=== PATIENT | female | born 1950 | race Caucasian/White ===

== ENCOUNTER 2016-04-06 07:32 | Day surgery (SDC) | payer OTHER ==
[~2016-04-06 07:32] MED LIST: BUPIVACAINE HCL 0.75% INJ/PF (7.5 MG/1 ML) 10 ML SDV OS PRN; KETOROLAC TROMETHAMINE 0.45% 4 DROP/0.4 ML DROPERETTE OS PRN; LIDOCAINE 4% INJ/PF (40 MG/ML) 5 ML AMPUL OS PRN
[2016-04-06] MEDS: TROPICAMIDE 1% OPH SOLN 3 ML OS PRN ×3 (08:29→08:40)
[2016-04-06] MEDS: CYCLOPENTOLATE 0.2%/PHENYLEPHRINE 1% OPH SOLN 2 ML OS PRN ×3 (08:30→08:41)
[2016-04-06] MEDS: BESIFLOXACIN HCL 0.6% OPH SUSP 5 ML BOTTLE OS PRN ×4 (08:31→09:21)
[2016-04-06] MEDS: TETRACAINE HCL 0.5% OPH SOLN 0.6 ML DROPERETTE OS PRN ×2 (08:33→08:43)
[2016-04-06] MEDS ORDERED: EPINEPHRINE INJ/PF 1 MG/1 ML AMPULE ONE (08:34)
[2016-04-06] MEDS ORDERED: CHONDR SU A NA/HYALUR INTRAOC KIT (SURGICARE) ONE (08:35)
[2016-04-06] MEDS ORDERED: MIDAZOLAM 2 MG/2 ML INJ ONE (08:45)
[2016-04-06] MEDS ORDERED: LIDOCAINE 1% INJ-PF (10 MG/ML) 30 ML SDV ONE (09:09)
--- NOTE | 2016-04-06 09:29 | [facility] OPERATIVE REPORT E ---
[facility] Operative Report NAME: ROSALINO VILLATORO AGE: 65Y DATE OF SURGERY: 04/06/2016 ROOM: PREOPERATIVE DIAGNOSIS: CATARACT, LEFT EYE. POSTOPERATIVE DIAGNOSIS: CATARACT, LEFT EYE. PROCEDURE; Phacoemulsification with posterior chamber intraocular lens, left eye. SURGEON: ZACKARY ACEVEDO MD ANESTHESIA: Topical with MAC plus intraocular lidocaine. INDICATIONS FOR SURGERY: Difficulty driving at night due to glare. Best-corrected visual acuity 20/50. PROCEDURE: The patient was brought to the operating room and placed on the operative table. Following tetracaine drops, topical anesthesia was administered. This consisted of instrument wipe pledgets soaked in a solution of 4% Xylocaine mixed with 0.75% Marcaine in a 1:2 ratio. A 2 x 1 cm pledget was placed in the superior fornix. A 1 x 1 cm pledget was placed in the inferior fornix. The eye was patched shut for 5 minutes. The patch was removed. The eye was sterilely prepped and draped in the usual manner. Lid speculum was placed in the eye. The pledgets were removed. Then 4-0 black silk sutures were placed around the superior and the inferior rectus muscles to be used as traction. A conjunctival peritomy was made at the 10 o'clock position. Hemostasis was attained with bipolar cautery. A posterior limbal groove was created using a crescent knife and dissected anteriorly towards the cornea. A sharp point blade was used to create a paracentesis site at the 2 o'clock position. A 2.4 mm keratome was used to enter the anterior chamber through the groove. Viscoelastic was injected into the anterior chamber. An anterior capsulotomy was performed using Utrata forceps in a capsulorrhexis fashion. Hydrodissection and hydrodelineation were performed. Phacoemulsification was performed in urxnak-zey-wiiesum technique. A total of 29 seconds phaco time was used. Following this, the I/A unit was used to remove residual cortex. Viscoelastic was injected into the capsular bag. Intraocular lens model SN60WF, 19.5 diopters, serial number [id number] was placed in the capsular bag. The I/A unit was used to remove residual viscoelastic. The wound was seen to be watertight under high and low pressure, and no sutures were placed. The intraocular lens was well centered. The pressure was adjusted in the eye to normal pressure. The 4-0 black silk sutures and lid speculum were removed. The eye was shielded after Besivance drops were placed. The patient tolerated the procedure well and was sent to the recovery room in good condition. DICTATING PHYSICIAN: ZACKARY ACEVEDO M.D. [id number] PHY#: [id number] ID: [id number] JOB#: [id number] ACCT: [id number] cc:ZACKARY ACEVEDO M.D. >
--- NOTE | 2016-04-06 09:31 | [facility] DISCHARGE SUMMARY E ---
[facility] Discharge Summary NAME: ROSALINO VILLATORO AGE: 65Y ADMITTED: 04/06/2016 DISCHARGED: 04/06/2016 HOSPITAL COURSE: The patient is a 65-year-old lady who underwent uneventful cataract extraction with intraocular lens implant of the left eye on 04/06/2016. DISPOSITION: She will be discharged to home. DISCHARGE INSTRUCTIONS: She is instructed to resume preoperative medications, take Tylenol as needed for discomfort, to keep her eye shielded. To use Besivance, Durezol, and Ilevro at 3 p.m. and 8 p.m. Follow up in my office this afternoon. DICTATING PHYSICIAN: ZACKARY ACEVEDO M.D. [id number] PHY#: [id number] ID: [id number] JOB#: [id number] ACCT: [id number] cc:ZACKARY ACEVEDO M.D. >
== END 2016-04-06 10:19 | disposition home or self-care (01) ==
LOC: SC 07:32
PROVIDERS: ATTEND Ophthalmology
PROC: 08RK3JZ Replacement of Left Lens with Synthetic Substitute, Percutaneous Approach (ICD-10-PCS; principal; 2016-04-06 08:30)
DX: H25.12 Age-related nuclear cataract, left eye (principal); H40.053 Ocular hypertension, bilateral; H17.82 Peripheral opacity of cornea; H35.372 Puckering of macula, left eye; H52.4 Presbyopia; Z88.1 Allergy status to other antibiotic agents; Z79.899 Other long term (current) drug therapy
CPT/HCPCS: 66984; V2632; J2250; J3490 ×4; J0171; 142

== ENCOUNTER → 2018-04-25 | Outpatient (CLI) | payer MEDICARE ==
[2018-04-25 09:38] LABS: CHOLESTEROL 181.22 mg/dL (0-200); TRIGLYCERIDES 58 mg/dL (<150)
[2018-04-25 09:49] LABS: DIRECT LDL 84 mg/dL (<100)
--- NOTE | 2018-04-25 11:34 | RADIOLOGY REPORT (SQ) ---
EXAM DESCRIPTION: CT SOFT TISSUE NECK WITH COMPLETED DATE/TIME: 04/25/2018 9:00 am REASON FOR STUDY: R22.1 LOCALIZED SWELLING, MASS AND LUMP, NECK R22.1 LOCALIZED SWELLING, MASS AND LUMP, NECK COMPARISON: None. TECHNIQUE: Post IV contrasted scanning from skull base through lung apices with review of bone, soft tissue and lung windows. Reconstructed coronal and sagittal MPR images reviewed. All images stored on PACS. All CT scanners at this facility use dose modulation, iterative reconstruction, and/or weight based d osing when appropriate to reduce radiation dose to as low as reasonably achievable (ALARA). [facility]: Dose Right [facility]: CareDose [facility]: Dose Right [facility]: Teradose 4D [facility]: [employer] CONTRAST TYPE AND DOSE: contrast/concentration: Isovue 350.00 mg/ml; Total Contrast Delivered: 75.0 ml; Total Saline Delivered: 46.0 ml RENAL FUNCTION: GFR > 60. RADIATION DOSE: . LIMITATIONS: None. FINDINGS: SKULL BASE: Intact. MAJOR SALIVARY GLANDS: No solid or cystic masses. No inflammatory changes. LYMPHADENOPATHY: No adenopathy. MUCOSAL MASSES OR ASYMMETRY: No mucosal masses or asymmetry. LARYNX/CORDS: No abnormal findings. VASCULAR STRUCTURES: The major vessels are patent. LUNG APICES: Clear. BONES: Intact. THYROID: Normal size. No masses. PARANASAL SINUSES: Clear. OTHER: No other significant finding. IMPRESSION: NO SIGNIFICANT FINDING IN THE SOFT TISSUES OF THE NECK. TECHNICAL DOCUMENTATION: JOB ID: [id number] Quality ID # [id number]: Final reports with documentation of one or more dose reduction techniques (e.g., Au tomated exposure control, adjustment of the mA and/or kV according to patient size, use of iterative reconstruction technique) 2010 [employer]- All Rights Reserved Reading location - IP/workstation name: [email or web address]
== END ==
LOC: RAD 08:15
PROVIDERS: ATTEND Family Medicine
DX: E78.5 Hyperlipidemia, unspecified (principal); R22.1 Localized swelling, mass and lump, neck
CPT/HCPCS: 36415; 70491; 80061; 82565; 84443